=== PATIENT | male | born 1980 | race Caucasian/White ===

== ENCOUNTER 2017-03-29 11:10 | Inpatient (IN) | payer OTHER ==
[2017-03-29 11:44] VITALS: BMI 31.8
--- NOTE | 2017-03-29 13:08 | HP ---
CIWA Score - CIWA Score Nausea/Vomitin Muscle Tremors: 3 Anxiety: 3 Agitation: 3 Paroxysmal Sweats: 2 Orientation: 0-Oriented Tacttile Disturbances: 1-Very Mild Itch/Numbness Auditory Disturbances: 1-Very Mild Visual Disturbances: 1-Very Mild Sensitivity Headache: 2-Mild CIWA-Ar Total Score: 19 Admission ROS BHS - HPI Chief Complaint: i need help to stop drinking and drug Allergies/Adverse Reactions: Allergies Allergy/AdvReac Type Severity Reaction Status Date / Time No Known Allergies Allergy Verified 03/29/17 11:53 History of Present Illness: this 36 years old male with alcohol,marijuana and pcp dependence, seeking detox,never been in detox before,failed out patient treatment syncope alcohol related nicotine dependence insomnia dvt right leg and pulmonary embolism admitted in [facility] in 10/14 Exam Limitations: No Limitations - Ebola screening Have you traveled outside of the country in the last 21 days: No Have you had contact with anyone from an Ebola affected area: No Have you been sick,other than usual withdrawal symptoms: No Do you have a fever: No - Review of Systems Constitutional: Loss of Appetite, Malaise, Night Sweats, Changes in sleep, Weakness EENT: reports: Nose Congestion Respiratory: reports: No Symptoms reported Cardiac: reports: Palpitations GI: reports: Diarrhea, Nausea, Vomiting, Abdominal cramping : reports: No Symptoms Reported Musculoskeletal: reports: Back Pain, Muscle Pain Integumentary: reports: Dryness Neuro: reports: Headache, Tremors Endocrine: reports: No Symptoms Reported Hematology: reports: No Symptoms Reported Psychiatric: reports: No Sypmtoms Reported, Judgement Intact, Mood/Affect Appropiate, Orientated x3 (insomnia) Patient History - Patient Medical History Hx Anemia: No Hx Asthma: No Hx Chronic Obstructive Pulmonary Disease (COPD): No Hx Cancer: No Hx Cardiac Disorders: No Hx Congestive Heart Failure: No Hx Hypertension: No Hx Hypercholesterolemia: No Hx Pacemaker: No HX Cerebrovascular Accident: No Hx Seizures: No Hx Dementia: No Hx Diabetes: No Hx Gastrointestinal Disorders: No Hx Liver Disease: No Hx Genitourinary Disorders: No Hx Sexually Transmitted Disorders: No Hx Renal Disease (ESRD): No Hx Thyroid Disease: No Hx Human Immunodeficiency Virus (HIV): No (last negative) Hx Hepatitis C: No Hx Depression: No Hx Suicide Attempt: No Hx Bipolar Disorder: No Hx Schizophrenia: No Other Medical History: insomnia,no suicidal,no homicidal,dvt rt leg with pulmonary [id number] - Patient Surgical History Past Surgical History: No Hx Neurologic Surgery: No Hx Cataract Extraction: No Hx Cardiac Surgery: No Hx Lung Surgery: No Hx Breast Surgery: No Hx Breast Biopsy: No Hx Abdominal Surgery: No Hx Appendectomy: No Hx Cholecystectomy: No Hx Genitourinary Surgery: No Hx Section: No Hx Orthopedic Surgery: No Anesthesia Reaction: No - PPD History Previous Implant?: Yes Documented Results: Negative w/o proof Implanted On Prior [facility] Admission?: No PPD to be Administered?: Yes - Smoking Cessation Smoking history: Current every day smoker Have you smoked in the past 12 months: Yes Aproximately how many cigarettes per day: 10 Hx Chewing Tobacco Use: No Initiated information on smoking cessation: Yes 'Breaking Loose' booklet given: 03/29/17 - Substance & Tx. History Hx Alcohol Use: Yes Hx Substance Use: Yes Substance Use Type: Alcohol, Marijuana Hx Substance Use Treatment: No - Substances Abused PCP Route: Smoking Frequency: 1-2 times per week Amount used: $10 Age of first use: 22 Date of Last Use: 03/27/17 Alcohol-cognac/beer Route: Oral Frequency: Daily Amount used: 1 pt./2-6 pks. Age of first use: 16 Date of Last Use: 03/29/17 Marijuana Route: Smoking Frequency: Daily Amount used: $20 Age of first use: 15 Date of Last Use: 03/29/17 Family Disease History - Family Disease History Family History: Denies Admission Physical Exam S - Vital Signs Vital Signs: Vital Signs - 24 hr 03/29/17 11:42 Temperature 97 F L Pulse Rate 95 H Respiratory 20 Rate Blood Pressure 121/68 - Physical General Appearance: Yes: Moderate Distress, Tremorous, Irritable, Sweating, Anxious HEENTM: Yes: Hearing grossly Normal, Normal ENT Inspection, CHARY, Pharynx Normal Respiratory: Yes: Lungs Clear, Normal Breath Sounds, No Respiratory Distress, Other (history of pulmonary embolism admitted in [facility] in 10/14) Neck: Yes: Within Normal Limits, Supple, Trachea in good position Breast: Yes: Within Normal Limits Cardiology: Yes: Within Normal Limits, Regular Rhythm, Regular Rate, S1, S2 Abdominal: Yes: Within Normal Limits, Normal Bowel Sounds, Non Tender, Flat, Soft Genitourinary: Yes: Within Normal Limits Back: Yes: Normal Inspection, Muscle Spasm Musculoskeletal: Yes: Back pain, Muscle Pain Extremities: Yes: Tremors, Other (dvt right leg) 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 NML intact, Fully Oriented, Alert, Motor Strength 5/5 Integumentary: Yes: Dry Lymphatic: Yes: Within Normal Limits - Diagnostic (1) Alcohol dependence with uncomplicated withdrawal Current Visit: Yes Status: Acute (2) Cannabis dependence Current Visit: Yes Status: Acute (3) PCP (phencyclidine) abuse Current Visit: Yes Status: Acute (4) Syncope Current Visit: Yes Status: Acute (5) Nicotine dependence Current Visit: Yes Status: Acute (6) Right leg DVT Current Visit: Yes Status: Acute (7) Pulmonary embolism Current Visit: Yes Status: Acute Cleared for Admission [facility] - Detox or Rehab [facility] Level of Care: Medically Managed Detox Regimen/Protocol: Librium [facility] Breath Alcohol Content Breath Alcohol Content: 0.053 Urine Drug Screen - Results Drug Screen Negative: No Urine Drug Screen Results: THC-Marijuana, PCP-Phencyclidine
[2017-03-29] MEDS ORDERED: MENTHOL/PHENOL 1 EACH UD MM PRN (13:19)
[2017-03-29] MEDS ORDERED: MAGNESIUM HYDROX 2400MG/30ML ORAL SUSPENSION 30 ML CUP PO PRN (13:19)
[2017-03-29] MEDS ORDERED: hydrOXYzine PAMOATE 50 MG CAPSULE (FP) PO PRN (13:19)
[2017-03-29] MEDS ORDERED: diphenhydrAMINE HCL 50 MG CAPSULE PO PRN (13:19)
[2017-03-29] MEDS ORDERED: LOPERAMIDE HCL 2 MG CAPSULE PO PRN (13:19)
[2017-03-29] MEDS ORDERED: P-EPHED 60MG/TRIPROLIDI 2.5MG TABLET PO PRN (13:19)
[2017-03-29] MEDS ORDERED: ACETAMINOPHEN 325 MG TABLET (FP) PO PRN (13:19)
[2017-03-29] MEDS ORDERED: MAGNESIUM CITRATE 300 ML BOTTLE PO PRN (13:19)
[2017-03-29] MEDS ORDERED: MAG HYDROX/AL HYDROX/SIMETH 30 ML UNIT-DOSE CUP PO PRN (13:19)
[2017-03-29] MEDS ORDERED: chlordiazePOXIDE HCL 25 MG CAPSULE PO PRN (13:19)
[2017-03-29] MEDS ORDERED: guaiFENesin/D-METHORPHAN HB 10 ML UNIT-DOSE CUPS PO PRN (13:19)
[2017-03-29] MEDS ORDERED: IBUPROFEN 400 MG TABLET (FP) PO PRN (13:19)
[2017-03-29] MEDS ORDERED: chlordiazePOXIDE HCL 25 MG CAPSULE PO ONE (14:15)
[2017-03-29] MEDS: NICOTINE 21 MG/24 HOURS TOPICAL PATCH TD SCH (14:33)
--- NOTE | 2017-03-29 15:52 | CONSULT ---
[facility] Psychiatric Consult - Data Date of interview: 03/29/17 Admission source: [facility] Identifying data: First admission to [facility] for this 36 y/o male seeking detox treatment on for alcohol and marijuana dependence.Patient is single without children,homeless,unemployed and supported on foodstamps. Substance Abuse History: Discussed in this interview.Mr Alonso confirms this [facility] report : Smoking Cessation. Smoking history: Current every day smoker. Have you smoked in the past 12 months: Yes. Aproximately how many cigarettes per day: 10. Hx Chewing Tobacco Use: No. Initiated information on smoking cessation: Yes. 'Breaking Loose' booklet given: 03/29/17. - Substance & Tx. History. Hx Alcohol Use: Yes. Hx Substance Use: Yes. Substance Use Type: Alcohol, Marijuana. Hx Substance Use Treatment: No. - Substances Abused. PCP. Route: Smoking. Frequency: 1-2 times per week. Amount used: $10. Age of first use: 22. Date of Last Use: 03/27/17. Alcohol-cognac/beer. Route: Oral. Frequency: Daily. Amount used: 1 pt./2-6 pks. Age of first use: 16. Date of Last Use: 03/29/17. Marijuana. Route: Smoking. Frequency: Daily. Amount used: $20. Age of first use: 15. Date of Last Use: 03/29/17 Medical History: Significant for DVT (right leg) and a history of pulmonary embolism. Psychiatric History: Patient denies. Physical/Sexual Abuse/Trauma History: Patient denies. Additional Comment: Urine Drug Screen Results: THC-Marijuana, PCP- Phencyclidine.Noted. Mental Status Exam - Mental Status Exam Alert and Oriented to: Time, Place, Person Cognitive Function: Good Patient Appearance: Well Groomed Mood: Hopeful, Euthymic Affect: Appropriate, Normal Range Patient Behavior: Appropriate, Cooperative Speech Pattern: Clear Voice Loudness: Normal Thought Process: Goal Oriented Thought Disorder: Not Present Hallucinations: Denies Suicidal Ideation: Denies Homicidal Ideation: Denies Insight/Judgement: Poor Sleep: Poorly, Difficulty falling asleep Appetite: Good Muscle strength/Tone: Normal Gait/Station: Normal Psychiatric Findings - Problem List ([place] 1, 2,3) (1) Alcohol dependence with uncomplicated withdrawal Current Visit: Yes Status: Acute (2) PCP (phencyclidine) abuse Current Visit: Yes Status: Acute (3) Cannabis dependence Current Visit: Yes Status: Acute (4) Nicotine dependence Current Visit: Yes Status: Acute (5) Pulmonary embolism Current Visit: No Status: Chronic (6) Right leg DVT Current Visit: Yes Status: Acute (7) Insomnia Current Visit: Yes Status: Acute - Initial Treatment Plan Initial Treatment Plan: Psychoeducation.Detoxification.Ambien 10 mg po prn.Patient made aware of potential for parasomnias.Benefits of sleep hygiene : discussed with patient as well.Mr Alonso is in agreement with this careplan.Observation.
[2017-03-29] MEDS ORDERED: ZOLPIDEM TARTRATE 5 MG TABLET PO PRN (16:09)
[2017-03-29 17:07] LABS: URINE APPEARANCE CLEAR; URINE BILIRUBIN NEGATIVE (NEGATIVE); URINE BLOOD NEGATIVE (NEGATIVE); URINE COLOR YELLOW; URINE GLUCOSE (UA) NEGATIVE (NEGATIVE); URINE KETONE NEGATIVE (NEGATIVE); URINE LEUK ESTERASE NEGATIVE (NEGATIVE); URINE NITRITE NEGATIVE (NEGATIVE); URINE PROTEIN NEGATIVE (NEGATIVE); URINE UROBILINOGEN NEGATIVE mg/dL (0.2-1.0)
[2017-03-29] MEDS: chlordiazePOXIDE HCL 25 MG CAPSULE PO SCH ×2 (17:20→22:24)
[2017-03-29] MEDS ORDERED: THIAMINE HCL 100 MG TABLET (FP) PO SCH (22:00)
[2017-03-29] MEDS: RIVAROXABAN 15 MG TABLET PO SCH (22:23)
[2017-03-30] MEDS: chlordiazePOXIDE HCL 25 MG CAPSULE PO SCH ×2 (06:28→10:35)
[2017-03-30] MEDS ORDERED: PRENATAL VITAMINS W/ FOLIC ACID TABLET (FP) PO SCH (10:00)
[2017-03-30 10:08] LABS: MCH 31.4 pg (25.7-33.7); MCHC 34.4 g/dl (32.0-35.9); MEAN CELL VOLUME 91.4 fl (80-96); MEAN PLT VOLUME 8.6 fl (7.5-11.1); PLATELET COUNT 240 K/MM3 (134-434); RDW 13.3 % (11.9-15.9); WHITE BLOOD COUNT 5.6 K/mm3 (4.0-10.0)
[2017-03-30 10:31] LABS: ALBUMIN 4.1 g/dl (3.4-5.0); ALK PHOS 78 U/L (45-117); ANION GAP 5 (8-16); BILIRUBIN,TOTAL 0.6 mg/dL (0.2-1.0); CALCIUM 9.2 mg/dL (8.5-10.1); CO2 28 mmol/L (21-32); GLUCOSE,RANDOM 97 mg/dL (74-106); SGOT/AST 15 U/L (15-37); SGPT/ALT 28 U/L (12-78); TOT PROT 7.5 g/dl (6.4-8.2)
[2017-03-30] MEDS: RIVAROXABAN 15 MG TABLET PO SCH (10:36)
[2017-03-30] MEDS: NICOTINE 21 MG/24 HOURS TOPICAL PATCH TD SCH (10:36)
--- NOTE | 2017-03-30 10:47 | PN ---
[facility] CIWA - CIWA Score Nausea/Vomitin-No Nausea/No Vomiting Muscle Tremors: 4-Moderate,w/Arms Extend Anxiety: 4-Mod. Anxious/Guarded Agitation: 4-Moderately Restless Paroxysmal Sweats: 1-Minimal Palms Moist Orientation: 0-Oriented Tacttile Disturbances: 3-Moderate Itch/Numb/Burn Auditory Disturbances: 0-None Visual Disturbances: 0-None Headache: 0-None Present CIWA-Ar Total Score: 16 BHS Progress Note (SOAP) Subjective: TREMORS,ANXIETY, SWEATS. Objective: 03/30/17 10:46 Vital Signs Temperature 97.1 F L 03/30/17 09:17 Pulse Rate 82 03/30/17 09:17 Respiratory Rate 18 03/30/17 09:17 Blood Pressure 118/84 03/30/17 09:17 O2 Sat by Pulse Oximetry (%) Laboratory Last Values WBC 5.6 K/mm3 (4.0-10.0) 03/30/17 06:00 RBC 4.82 M/mm3 (4.00-5.60) 03/30/17 06:00 Hgb 15.1 GM/dL (11.7-16.9) 03/30/17 06:00 Hct 44.1 % (35.4-49) 03/30/17 06:00 MCV 91.4 fl (80-96) 03/30/17 06:00 MCH 31.4 pg (25.7-33.7) 03/30/17 06:00 MCHC 34.4 g/dl (32.0-35.9) 03/30/17 06:00 RDW 13.3 % (11.9-15.9) 03/30/17 06:00 Plt Count 240 K/MM3 (134-434) 03/30/17 06:00 MPV 8.6 fl (7.5-11.1) 03/30/17 06:00 Sodium 141 mmol/L (136-145) 03/30/17 06:00 Potassium 4.3 mmol/L (3.5-5.1) 03/30/17 06:00 Chloride 108 mmol/L (98-107) H 03/30/17 06:00 Carbon Dioxide 28 mmol/L (21-32) 03/30/17 06:00 Anion Gap 5 (8-16) L 03/30/17 06:00 BUN 15 mg/dL (7-18) 03/30/17 06:00 Creatinine 1.0 mg/dL (0.7-1.3) 03/30/17 06:00 Creat Clearance w eGFR > 60 (>60) 03/30/17 06:00 Random Glucose 97 mg/dL (74-106) 03/30/17 06:00 Calcium 9.2 mg/dL (8.5-10.1) 03/30/17 06:00 Total Bilirubin 0.6 mg/dL (0.2-1.0) 03/30/17 06:00 AST 15 U/L (15-37) 03/30/17 06:00 ALT 28 U/L (12-78) 03/30/17 06:00 Alkaline Phosphatase 78 U/L (45-117) 03/30/17 06:00 Total Protein 7.5 g/dl (6.4-8.2) 03/30/17 06:00 Albumin 4.1 g/dl (3.4-5.0) 03/30/17 06:00 Urine Color Yellow 03/29/17 14:55 Urine Appearance Clear 03/29/17 14:55 Urine pH 5.0 (5.0-8.0) 03/29/17 14:55 Ur Specific [place] 1.025 (1.005-1.025) 03/29/17 14:55 Urine Protein Negative (NEGATIVE) 03/29/17 14:55 Urine Glucose (UA) Negative (NEGATIVE) 03/29/17 14:55 Urine Ketones Negative (NEGATIVE) 03/29/17 14:55 Urine Blood Negative (NEGATIVE) 03/29/17 14:55 Urine Nitrite Negative (NEGATIVE) 03/29/17 14:55 Urine Bilirubin Negative (NEGATIVE) 03/29/17 14:55 Urine Urobilinogen Negative mg/dL (0.2-1.0) 03/29/17 14:55 Ur Leukocyte Esterase Negative (NEGATIVE) 03/29/17 14:55 Assessment: 03/30/17 10:46 WITHDRAWAL SX Plan: CONTINUE DETOX
--- NOTE | 2017-03-30 11:31 | EKG ---
Test Reason : Blood Pressure : / mmHG Vent. Rate : 072 BPM Atrial Rate : 072 BPM P-R Int : 168 ms QRS Dur : 088 ms QT Int : 374 ms P-R-T Axes : 072 -01 019 degrees QTc Int : 409 ms NORMAL SINUS RHYTHM NORMAL ECG NO PREVIOUS ECGS AVAILABLE Confirmed by JORGE HILTNO, TERESA ([id number]) on 03/30/2017 11:30:48 AM Referred By: Suhail Boland Confirmed By:TERESA PATEL MD
[2017-03-30 13:46] VITALS: BP 110/78; PULSE 78; TEMP 97.4
--- NOTE | 2017-03-30 14:50 | DS ---
[facility] Detox Discharge Summary Admission Date: 03/29/17 Discharge Date: 03/30/17 - History Present History: Alcohol Dependence, Cannabis Dependence Additional Comments: PT DECLINED TO CONTINUE WITH DETOX FOR PERSONAL REASONS STATING "I'M GOOD". PT STATES HAS PCP AT [facility]. PT REMINDED TO FOLLOW UP WITH MEDICAL CARE NEEDED WITH PCP. ALL EFFORTS TO ENCOURAGE PT TO CONTINUE DETOX FAILED. Pertinent Past History: DENIES - Physical Exam Results Vital Signs: Vital Signs Temperature 97.4 F L 03/30/17 13:45 Pulse Rate 78 03/30/17 13:45 Respiratory Rate 18 03/30/17 13:45 Blood Pressure 110/78 03/30/17 13:45 O2 Sat by Pulse Oximetry (%) Pertinent Admission Physical Exam Findings: WITHDRAWAL SX Laboratory Last Values WBC 5.6 K/mm3 (4.0-10.0) 03/30/17 06:00 RBC 4.82 M/mm3 (4.00-5.60) 03/30/17 06:00 Hgb 15.1 GM/dL (11.7-16.9) 03/30/17 06:00 Hct 44.1 % (35.4-49) 03/30/17 06:00 MCV 91.4 fl (80-96) 03/30/17 06:00 MCH 31.4 pg (25.7-33.7) 03/30/17 06:00 MCHC 34.4 g/dl (32.0-35.9) 03/30/17 06:00 RDW 13.3 % (11.9-15.9) 03/30/17 06:00 Plt Count 240 K/MM3 (134-434) 03/30/17 06:00 MPV 8.6 fl (7.5-11.1) 03/30/17 06:00 Sodium 141 mmol/L (136-145) 03/30/17 06:00 Potassium 4.3 mmol/L (3.5-5.1) 03/30/17 06:00 Chloride 108 mmol/L (98-107) H 03/30/17 06:00 Carbon Dioxide 28 mmol/L (21-32) 03/30/17 06:00 Anion Gap 5 (8-16) L 03/30/17 06:00 BUN 15 mg/dL (7-18) 03/30/17 06:00 Creatinine 1.0 mg/dL (0.7-1.3) 03/30/17 06:00 Creat Clearance w eGFR > 60 (>60) 03/30/17 06:00 Random Glucose 97 mg/dL (74-106) 03/30/17 06:00 Calcium 9.2 mg/dL (8.5-10.1) 03/30/17 06:00 Total Bilirubin 0.6 mg/dL (0.2-1.0) 03/30/17 06:00 AST 15 U/L (15-37) 03/30/17 06:00 ALT 28 U/L (12-78) 03/30/17 06:00 Alkaline Phosphatase 78 U/L (45-117) 03/30/17 06:00 Total Protein 7.5 g/dl (6.4-8.2) 03/30/17 06:00 Albumin 4.1 g/dl (3.4-5.0) 03/30/17 06:00 Urine Color Yellow 03/29/17 14:55 Urine Appearance Clear 03/29/17 14:55 Urine pH 5.0 (5.0-8.0) 03/29/17 14:55 Ur Specific [place] 1.025 (1.005-1.025) 03/29/17 14:55 Urine Protein Negative (NEGATIVE) 03/29/17 14:55 Urine Glucose (UA) Negative (NEGATIVE) 03/29/17 14:55 Urine Ketones Negative (NEGATIVE) 03/29/17 14:55 Urine Blood Negative (NEGATIVE) 03/29/17 14:55 Urine Nitrite Negative (NEGATIVE) 03/29/17 14:55 Urine Bilirubin Negative (NEGATIVE) 03/29/17 14:55 Urine Urobilinogen Negative mg/dL (0.2-1.0) 03/29/17 14:55 Ur Leukocyte Esterase Negative (NEGATIVE) 03/29/17 14:55 - Treatment Hospital Course: Discharged Condition Good Patient has Accepted a Rehab Referral to: PT STATES IS GOING TO [facility] - Medication Discharge Medications: Ambulatory Orders Rivaroxaban [Xarelto -] 15 mg PO BID 03/29/17 - Diagnosis (1) Alcohol dependence with uncomplicated withdrawal Current Visit: Yes Status: Acute (2) Cannabis dependence Current Visit: Yes Status: Acute (3) Nicotine dependence Current Visit: Yes Status: Acute Qualifiers: Nicotine product type: cigarettes Substance use status: in withdrawal Qualified Code(s): F17.213 - Nicotine dependence, cigarettes, with withdrawal (4) Right leg DVT Current Visit: Yes Status: Suspected Qualifiers: Affected thrombotic vein of extremity: unspecified lower extremity proximal vein Chronicity: unspecified Qualified Code(s): I82.4Y1 - Acute embolism and thrombosis of unspecified deep veins of right proximal lower extremity (5) Pulmonary embolism Current Visit: No Status: Suspected - AMA Did Patient Leave Against Medical Advice: Yes (AMA)
[2017-03-30] MEDS ORDERED: chlordiazePOXIDE HCL 25 MG CAPSULE PO SCH (17:00)
[2017-03-31] MEDS ORDERED: chlordiazePOXIDE 5 MG CAPSULE PO SCH (17:00)
[2017-04-01] MEDS ORDERED: chlordiazePOXIDE HCL 10 MG CAPSULE PO SCH (17:00)
== END 2017-03-30 15:06 | disposition left against medical advice (07) | DRG 770 ==
LOC: YASAS 11:10 → Y3N 13:28
PROVIDERS: ADMIT Internal Medicine; ATTEND Internal Medicine
PROC: HZ2ZZZZ Detoxification Services for Substance Abuse Treatment (ICD-10-PCS; principal; 2017-03-29)
DX: F10.230 Alcohol dependence with withdrawal, uncomplicated (principal); F12.20 Cannabis dependence, uncomplicated; F16.10 Hallucinogen abuse, uncomplicated; F17.213 Nicotine dependence, cigarettes, with withdrawal; I82.4Y1 Acute embolism and thrombosis of unspecified deep veins of right proximal lower extremity; Z86.711 Personal history of pulmonary embolism; Z79.01 Long term (current) use of anticoagulants
CPT/HCPCS: 36415; 80053; 81003; 85027; 86593; 93005; 93010

== ENCOUNTER 2019-08-08 14:27 | Emergency (ER) | payer OTHER ==
[2019-08-08 14:41] VITALS: BP 136/85; PULSE 83; TEMP 98; BMI 29.9
[2019-08-08] MEDS ORDERED: LIDOCAINE HCL 1%, 10 MG/ML (20ML VIAL) ONE (15:14)
[2019-08-08] MEDS ORDERED: AMOX TR/POT CLAV 875MG/125MG TABLETS (FP) PO ONE (15:37)
[2019-08-08] MEDS ORDERED: DIPHTH,PERTUSS(ACELL),TET 0.5 ML DISP.SYRIN IM ONE ×2 (15:37→15:51)
[2019-08-08] MEDS ORDERED: AMOX TR/POT CLAV 875MG/125MG TABLETS (FP) ONE (15:50)
--- NOTE | 2019-08-08 15:51 | PDOC ---
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 Patient had profuse bleeding/pulsatile bleeding at the time and came immediately to emergency department for evaluation. Uncertain as to last tetanus shot. States has some numbness to the distal aspect of that finger. Occurred: reports: just prior to arrival Severity: reports: mild, moderate Pain Location: reports: upper extremity (Left finger fifth) Method of Injury: Yes: direct blow Associated Symptoms (Fall): denies symptoms Past History - Travel Traveled outside of the country in the last 30 days: No Close contact w/someone who was outside of country & ill: No - Past Medical History Allergies/Adverse Reactions: Allergies Allergy/AdvReac Type Severity Reaction Status Date / Time No Known Allergies Allergy Verified 03/29/17 11:53 Home Medications: Ambulatory Orders Amox-Tr/K Cl [Augmentin 875Mg Tablet] 1 tab PO BID #14 tablet 08/08/19 Oxycodone HCl/Acetaminophen [Percocet 5-325 mg Tablet -] 1 - 2 tab PO Q4H PRN # 10 tablet MDD 4 08/08/19 Anemia: No Asthma: No Cancer: No Cardiac Disorders: No CVA: No COPD: No CHF: No Dementia: No Diabetes: No GI Disorders: No Disorders: No HTN: No Hypercholesterolemia: No Kidney Stones: No Liver Disease: No Seizures: No Thyroid Disease: No Other medical history: PE - Surgical History Abdominal Surgery: No Appendectomy: No Cardiac Surgery: No Cholecystectomy: No Lung Surgery: No Neurologic Surgery: No Orthopedic Surgery: No - Reproductive History Testicular Surgery: No - Psycho Social/Smoking Cessation Hx Smoking History: Current every day smoker Have you smoked in the past 12 months: Yes Number of Cigarettes Smoked Daily: 2 Information on smoking cessation initiated: No 'Breaking Loose' booklet given: 03/29/17 Hx Alcohol Use: Yes Drug/Substance Use Hx: Yes Substance Use Type: Alcohol, Marijuana Hx Substance Use Treatment: No Trauma Specific PMHX - Complaint Specific PMHX Arthritis: No Review of Systems - Review of Systems Able to Perform ROS?: Yes Is the patient limited [place]at[place] proficient: Yes Constitutional: Yes: Symptoms Reported, See HPI. No: Fever, Malaise HEENTM: No: Symptoms Reported Musculoskeletal: Yes: Symptoms Reported, See HPI Integumentary: Yes: Symptoms Reported, See HPI, Other (Significant laceration to the flexor crease of left fifth PIP) Neurological: Yes: Symptoms reported, See HPI, Numbness All Other Systems: Reviewed and Negative *Physical Exam - Vital Signs Last Vital Signs Temp Pulse Resp BP Pulse Ox 98 F 83 18 136/85 99 08/08/19 14:39 08/08/19 14:39 08/08/19 14:39 08/08/19 14:39 08/08/19 14:39 - Physical Exam General Appearance: Yes: Nourished, Appropriately Dressed, Apparent Distress, Moderate Distress HEENT: positive: CHARY, Normal ENT Inspection, TMs Normal, Pharynx Normal Musculoskeletal: positive: Normal Inspection Extremity: positive: Normal Capillary Refill, Swelling. negative: Normal Inspection, Normal Range of Motion (Patient unable to flex left fifth digit past PIP and sensation is diminished in distal digit tip. Has a full-thickness laceration) Integumentary: positive: Pale, Other (2 cm laceration across PIP of left fifth digit with pulsatile bleeding. 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 Discussed case with Dr. Carcamo/JODY Lyman for their service who recommends closure splinting and will see patient in their office for surgical repair this coming week. Patient updated to plan, given first dose of Augmentin 875 mg here, tetanus/diphtheria/ pertussis booster updated 08/08/19 19:45 Discharge - Discharge Information Problems reviewed: Yes Clinical Impression/Diagnosis: Flexor tendon laceration of hand with open wound Qualifiers: Encounter type: initial encounter Laterality: left Qualified Code(s): S66.822A - Laceration of other specified muscles, fascia and tendons at wrist and hand level, left hand, initial encounter Condition: Stable Disposition: HOME - Admission No - Additional Discharge Information Prescriptions: Amox-Tr/K Cl [Augmentin 875Mg Tablet] 1 tab PO BID #14 tablet Oxycodone HCl/Acetaminophen [Percocet 5-325 mg Tablet -] 1 - 2 tab PO Q4H PRN # 10 tablet MDD 4 PRN Reason: Pain - Follow up/Referral Referrals: Rex Cortez MD [Staff Physician] - - Patient Discharge Instructions Patient Printed Discharge Instructions: DI for Laceration Repair Additional Instructions: Rest, elevate, avoid strenuous activity or heavy lifting until evaluated by hand specialist Use sling until seen by Dr. Bradley Call tomorrow for appointment to see hand specialist within the next week Augmentin 1-875 mg tablet every 12 hours for the next week May use Percocet for severe pain, understanding will make dizzy and sleepy. May use one half tab if 1 tablet is too strong May use Tylenol for minor pain Your tetanus/diphtheria/pertussis booster was updated today - Post Discharge Activity Work/Back to School Note: Back to Work
== END 2019-08-08 16:19 | disposition home or self-care (01) ==
LOC: JERFT 14:27
PROC: 3E0234Z Introduction of Serum, Toxoid and Vaccine into Muscle, Percutaneous Approach (ICD-10-PCS; principal; 2019-08-08)
DX: S66.822A Laceration of other specified muscles, fascia and tendons at wrist and hand level, left hand, initial encounter (principal); W45.8XXA Other foreign body or object entering through skin, initial encounter; Y93.89 Activity, other specified; Y92.89 Other specified places as the place of occurrence of the external cause; Y99.0 Civilian activity done for income or pay; F17.210 Nicotine dependence, cigarettes, uncomplicated; Z86.711 Personal history of pulmonary embolism
CPT/HCPCS: 73140-TC-LT-FY; 90715; 99284-25

== ENCOUNTER 2020-04-30 10:38 | Inpatient (IN) | payer OTHER ==
--- NOTE | 2020-04-30 11:37 | BHS.RME ---
Substance Use & Tx History - Substance Use History Alcohol Substance amount: 2 pints lisa Frequency of use: Daily Substance route: Oral Date of Last Use: 04/28/20 Marijuana/Hashish Substance amount: 5 blunts Frequency of use: Daily Substance route: Smoking Date of Last Use: 04/30/20 Buprenorphine Substance amount: 6-7 mg Frequency of use: Daily Substance route: Oral Date of Last Use: 04/29/20 Other Opiates/Synthetics Substance amount: percocets 10-325 tab 5-6 tabs Frequency of use: Daily Substance route: Oral Date of Last Use: 04/27/20 COWS - Scale Resting Pulse: 1= [place] 81-100 Sweatin= Chills/Flushing Restless Observation: 1= Difficult to Sit Still Pupil Size: 0= Normal to Room Light Bone or Joint Aches: 1= Mild Discomfort Runny Nose/ Eye Tearin= None GI Upset > 30mins: 0= None Tremor Observation: 0= None Yawning Observation: 0= None Anxiety or Irritability: 0= None Goose Flesh Skin: 0=Smooth Skin (may be mititgated by the fact that he's been taking suboxone strips pieces) COWS Score: 4 CIWA Nausea/Vomitin-Mild Nausea/No Vomiting Muscle Tremors: 3 Anxiety: 4-Mod. Anxious/Guarded Agitation: 3 Paroxysmal Sweats: 3 Orientation: 0-Oriented Tacttile Disturbances: 0-None Auditory Disturbances: 0-None Visual Disturbances: 0-None Headache: 1-Very Mild CIWA-Ar Total Score: 15
--- NOTE | 2020-04-30 12:20 | HP ---
COWS - Scale Resting Pulse: 1= MI 81-100 Sweatin= Chills/Flushing Restless Observation: 1= Difficult to Sit Still Pupil Size: 0= Normal to Room Light Bone or Joint Aches: 1= Mild Discomfort Runny Nose/ Eye Tearin= None GI Upset > 30mins: 0= None Tremor Observation: 0= None Yawning Observation: 0= None Anxiety or Irritability: 0= None Goose Flesh Skin: 0=Smooth Skin (may be mititgated by the fact that he's been taking suboxone strips pieces) COWS Score: 4 CIWA Score Nausea/Vomitin-Mild Nausea/No Vomiting Muscle Tremors: 3 Anxiety: 4-Mod. Anxious/Guarded Agitation: 3 Paroxysmal Sweats: 3 Orientation: 0-Oriented Tacttile Disturbances: 0-None Auditory Disturbances: 0-None Visual Disturbances: 0-None Headache: 1-Very Mild CIWA-Ar Total Score: 15 - Admission Criteria [facility]ASAS Guidelines: Admission for Medically Managed Detox: Requires at least one of the followin. CIWA greater than 12 2. Seizures within the past 24 hours 3. Delirium tremens within the past 24 hours 4. Hallucinations within the past 24 hours 5. Acute intervention needed for co occurring medical disorder 6. Acute intervention needed for co occurring psychiatric disorder 7. Severe withdrawal that cannot be handled at a lower level of care (continued vomiting, continued diarrhea, abnormal vital signs) requiring intravenous medication and/or fluids 8. Admitting History and Physical - Admission History of Present Illness: Patient is a 39 y.o. M PMHx DVT presenting to [facility] for detox. Patient was examined in the room and is in no acute distress. 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 - Substance Use History Alcohol Substance amount: 2 pints lisa Frequency of use: Daily Substance route: Oral Date of Last Use: 04/28/20 Marijuana/Hashish Substance amount: 5 blunts Frequency of use: Daily Substance route: Smoking Date of Last Use: 04/30/20 Buprenorphine Substance amount: 6-7 mg Frequency of use: Daily Substance route: Oral Date of Last Use: 04/29/20 Other Opiates/Synthetics Substance amount: percocets 10-325 tab 5-6 tabs Frequency of use: Daily Substance route: Oral Date of Last Use: 04/27/20 History Source: Patient Limitations to Obtaining History: No Limitations - Past Medical History [employer]MER: No: Seizure Cardiovascular: No: HTN, Hyperlipdemia Pulmonary: Yes: Pulmonary Embolus Gastrointestinal: No: GERD, GI Bleed Hepatobiliary: No: Hepatitis A, Hepatitis B, Hepatitis C Infectious Disease: No: HIV, STD's, Tuberculosis Psych: No: Anxiety, Depression - Past Surgical History Past Surgical History: Yes: None - Smoking History Smoking history: Current every day smoker Have you smoked in the past 12 months: Yes Aproximately how many cigarettes per day: 10 - Alcohol/Substance Use Hx Alcohol Use: Yes Number of Drinks Daily: 2 History of Substance Use: reports: Marijuana - Social History Usual Living Arrangement: Yes: Other (friend) ADL: Independent 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 M PMHx DVT presenting to [facility] for detox. Patient was examined in the room and is in no acute distress. 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 - Substance Use History Alcohol Substance amount: 2 pints ilsa Frequency of use: Daily Substance route: Oral Date of Last Use: 04/28/20 Marijuana/Hashish Substance amount: 5 blunts Frequency of use: Daily Substance route: Smoking Date of Last Use: 04/30/20 Buprenorphine Substance amount: 6-7 mg Frequency of use: Daily Substance route: Oral Date of Last Use: 04/29/20 Other Opiates/Synthetics Substance amount: percocets 10-325 tab 5-6 tabs Frequency of use: Daily Substance route: Oral Date of Last Use: 04/27/20 Exam Limitations: No Limitations - Ebola screening Have you traveled outside of the country in the last 21 days: No Have you had contact with anyone from an Ebola affected area: No Have you been sick,other than usual withdrawal symptoms: No Do you have a fever: No - Review of Systems Constitutional: No Symptoms Reported EENT: reports: Double Vision. denies: Blurred Vision Respiratory: denies: Cough, Shortness of Breath Cardiac: reports: Lightheadedness. denies: Chest Pain GI: denies: Constipated, Diarrhea, Nausea, Vomiting : reports: Other (hesitancy). denies: Burning, Dysuria Musculoskeletal: denies: Muscle Pain, Muscle Weakness, Neck Pain Neuro: reports: Dizziness. denies: Headache, Numbness, Paresthesia Psychiatric: reports: No Sypmtoms Reported, Judgement Intact, Mood/Affect Appropiate, Orientated x3 Patient History - Patient Medical History Hx Anemia: No Hx Asthma: No Hx Chronic Obstructive Pulmonary Disease (COPD): No Hx Cancer: No Hx Cardiac Disorders: No Hx Congestive Heart Failure: No Hx Hypertension: No Hx Hypercholesterolemia: No Hx Pacemaker: No HX Cerebrovascular Accident: No Hx Seizures: No Hx Dementia: No Hx Diabetes: No Hx Gastrointestinal Disorders: No Hx Liver Disease: No Hx Genitourinary Disorders: No Hx Sexually Transmitted Disorders: No Hx Renal Disease (ESRD): No Hx Thyroid Disease: No Hx Human Immunodeficiency Virus (HIV): No (last negative) Hx Hepatitis C: No Hx Depression: No Hx Suicide Attempt: No Hx Bipolar Disorder: No Hx Schizophrenia: No - Patient Surgical History Past Surgical History: No Hx Neurologic Surgery: No Hx Cataract Extraction: No Hx Cardiac Surgery: No Hx Lung Surgery: No Hx Breast Surgery: No Hx Breast Biopsy: No Hx Abdominal Surgery: No Hx Appendectomy: No Hx Cholecystectomy: No Hx Genitourinary Surgery: No Hx Section: No Hx Orthopedic Surgery: No Anesthesia Reaction: No - PPD History Date: 01/29/20 - Smoking Cessation Smoking history: Current every day smoker Have you smoked in the past 12 months: Yes Aproximately how many cigarettes per day: 10 Hx Chewing Tobacco Use: No Initiated information on smoking cessation: Yes 'Breaking Loose' booklet given: 04/30/20 Admission Physical Exam [facility] - Physical General Appearance: Yes: Within Normal Limits, No Apparent Distress, Nourished, Appropriately Dressed Respiratory: Yes: Within Normal Limits, Lungs Clear, Decreased Breath Sounds, No Respiratory Distress, No Accessory Muscle Use Cardiology: Yes: Within Normal Limits, Regular Rhythm, Regular Rate Abdominal: Yes: Within Normal Limits, Normal Bowel Sounds, Non Tender, Flat, Soft Back: Yes: Within Normal Limits, Normal Inspection. No: CVA Tenderness Musculoskeletal: Yes: Within Normal Limits, full range of Motion Extremities: Yes: Normal Capillary Refill, Normal Inspection, Normal Range of Motion, Non-Tender Neurological: Yes: Within Normal Limits, Fully Oriented, Alert, Normal Mood/Aff ect, Normal Response Integumentary: Yes: Within Normal Limits, Normal Color, Dry, Warm - Diagnostic (1) Alcohol dependence with uncomplicated withdrawal Current Visit: No Status: Chronic (2) Cannabis dependence Current Visit: No Status: Chronic (3) Nicotine dependence Current Visit: No Status: Chronic Qualifiers: Nicotine product type: cigarettes Substance use status: in withdrawal Qualified Code(s): F17.213 - Nicotine dependence, cigarettes, with withdrawal (4) Opioid use disorder Current Visit: No Status: Chronic (5) Pulmonary embolism Current Visit: No Status: Suspected (6) Right leg DVT Current Visit: No Status: Suspected Qualifiers: Affected thrombotic vein of extremity: unspecified lower extremity proximal vein Chronicity: unspecified Qualified Code(s): I82.4Y1 - Acute embolism and thrombosis of unspecified deep veins of right proximal lower extremity Cleared for Admission [facility] - Detox or Rehab [facility] Level of Care: Medically Managed Detox Regimen/Protocol: Librium Breathalyzer - Breathalyzer Breathalyzer: 0 Vital Signs - Vital Signs Vital signs refused: No Temperature: 97.2 F Pulse Rate: 106 Respiratory Rate: 12 Blood Pressure: 130/78 - Height Height: 1.8 m - Weight Weight: 105.233 kg - BMI Body Mass Index (BMI): 32.3 Urine Drug Screen - Test Device Lot number: [id number] Expiration date: 12/03/21 - Control Is test valid?: Yes - Results Drug screen NEGATIVE: No Urine drug screen results: THC-Marijuana, BZO-Benzodiazepines Inpatient Rehab Admission - Rehab Decision to Admit Inpatient rehab admission?: No
[2020-04-30 12:26] VITALS: BMI 32.3
[2020-04-30] MEDS ORDERED: IBUPROFEN 400 MG TABLET (FP) PO PRN (12:26)
[2020-04-30] MEDS ORDERED: MENTHOL/PHENOL 1 EACH UD MM PRN (12:26)
[2020-04-30] MEDS ORDERED: METHOCARBAMOL 500 MG TABLET PO PRN (12:26)
[2020-04-30] MEDS ORDERED: chlordiazePOXIDE HCL 25 MG CAPSULE PO PRN (12:26)
[2020-04-30] MEDS ORDERED: MAGNESIUM CITRATE 300 ML BOTTLE PO PRN (12:26)
[2020-04-30] MEDS ORDERED: MAGNESIUM HYDROX 2400MG/30ML ORAL SUSPENSION 30 ML CUP PO PRN (12:26)
[2020-04-30] MEDS ORDERED: MAG HYDROX/AL HYDROX/SIMETH 30 ML UNIT-DOSE CUP PO PRN (12:26)
[2020-04-30] MEDS ORDERED: BISMUTH SUBSALICYLATE 524 MG/30 ML UD PO PRN (12:26)
[2020-04-30] MEDS ORDERED: ACETAMINOPHEN 325 MG TABLET (FP) PO PRN ×2 (12:26)
[2020-04-30] MEDS ORDERED: NICOTINE POLACRILEX 2 MG GUM BUC PRN (12:26)
[2020-04-30] MEDS ORDERED: ONDANSETRON *ODT* 4 MG TABLET SL ONE (13:00)
[2020-04-30] MEDS ORDERED: hydrOXYzine PAMOATE 25 MG CAPSULE (FP) PO SCH (14:00)
--- NOTE | 2020-04-30 15:03 | PN ---
Teaching Attending Note Name of Resident: Nilton Saunders ATTENDING PHYSICIAN STATEMENT I saw and evaluated the patient. I reviewed the resident's note and discussed the case with the resident. I agree with the resident's findings and plan as documented. SUBJECTIVE: OBJECTIVE: ASSESSMENT AND PLAN: Patient is a 39 y.o. M PMHx DVT presenting to [facility] for detox. Patient was examined in the room and is in no acute distress. 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 UDS: THC, BZO 1. Alcohol use disorder Plan 1. Librium protocol
--- NOTE | 2020-04-30 15:30 | EKG ---
Test Reason : Blood Pressure : / mmHG Vent. Rate : 083 BPM Atrial Rate : 083 BPM P-R Int : 166 ms QRS Dur : 090 ms QT Int : 360 ms P-R-T Axes : 085 008 050 degrees QTc Int : 423 ms NORMAL SINUS RHYTHM NORMAL ECG WHEN COMPARED WITH ECG OF 29-MAR-2017 13:39, NO SIGNIFICANT CHANGE WAS FOUND Confirmed by TERESA PATEL MD ([id number]) on 04/30/2020 3:29:37 PM Referred By: Confirmed By:TERESA PATEL MD
[2020-04-30] MEDS ORDERED: hydrOXYzine PAMOATE 25 MG CAPSULE (FP) PO PRN (15:34)
[2020-04-30 17:02] LABS: HEMATOCRIT 39.4 % (35.4-49); HEMOGLOBIN 13.6 GM/dL (11.7-16.9); MCH 31.7 pg (25.7-33.7); MCHC 34.5 g/dl (32.0-35.9); MEAN CELL VOLUME 91.9 fl (80-96); PLATELET COUNT 265 K/MM3 (134-434); RBC 4.29 M/mm3 (4.00-5.60); RDW 12.7 % (11.9-15.9); WHITE BLOOD COUNT 7.3 K/mm3 (4.0-10.0)
[2020-04-30 17:40] LABS: BILIRUBIN,TOTAL 0.3 mg/dL (0.2-1); BLOOD UREA NITROGEN 22.9 mg/dL (7-18); CALCIUM 9.2 mg/dL (8.5-10.1); CREATININE 1.2 mg/dL (0.55-1.3); POTASSIUM 4.5 mmol/L (3.5-5.1); TOT PROT 7.4 g/dl (6.4-8.2)
[2020-04-30] MEDS: chlordiazePOXIDE HCL 25 MG CAPSULE PO SCH ×2 (18:25→23:03)
[2020-04-30] MEDS ORDERED: THIAMINE HCL 100 MG TABLET (FP) PO SCH (22:00)
[2020-04-30] MEDS: MELATONIN 5 MG TABLETS PO SCH ×2 (23:20→23:33)
[2020-05-01 06:30] VITALS: TEMP 97.8
[2020-05-01] MEDS: chlordiazePOXIDE HCL 25 MG CAPSULE PO SCH ×2 (07:39→12:00)
[2020-05-01] MEDS ORDERED: PRENATAL VITAMINS W/ FOLIC ACID TABLET (FP) PO SCH (10:00)
[2020-05-01] MEDS ORDERED: NICOTINE 7 MG/24 HOURS TOPICAL PATCH TD SCH (10:00)
--- NOTE | 2020-05-01 10:23 | PN ---
S CIWA - CIWA Score Nausea/Vomitin-No Nausea/No Vomiting Muscle Tremors: 3 Anxiety: 3 Agitation: 3 Paroxysmal Sweats: 3 Orientation: 0-Oriented Tacttile Disturbances: 0-None Auditory Disturbances: 0-None Visual Disturbances: 0-None Headache: 0-None Present CIWA-Ar Total Score: 12 [facility] Progress Note (SOAP) Subjective: sweats shakes agitation interrupted sleep Objective: 05/01/20 10:21 Vital Signs Temperature 97.8 F 05/01/20 05:51 Pulse Rate 59 L 05/01/20 05:51 Respiratory Rate 05/01/20 05:51 Blood Pressure 114/60 05/01/20 05:51 O2 Sat by Pulse Oximetry (%) 97 05/01/20 05:51 Laboratory Tests 04/30/20 04/30/20 04/30/20 13:05 13:05 13:05 WBC 7.3 RBC 4.29 Hgb 13.6 Hct 39.4 MCV 91.9 MCH 31.7 MCHC 34.5 RDW 12.7 Plt Count 265 MPV 8.0 Sodium 141 Potassium 4.5 Chloride 107 Carbon Dioxide 29 Anion Gap 5 L BUN 22.9 H Creatinine 1.2 Est GFR (CKD-EPI)AfAm 88.37 Est GFR (CKD-EPI)NonAf 76.25 Random Glucose 106 Calcium 9.2 Total Bilirubin 0.3 AST 25 ALT 30 Alkaline Phosphatase 82 Total Protein 7.4 Albumin 4.0 Syphilis Serology Non-reactive COVID-19 (JASMINA) 04/30/20 13:20 WBC RBC Hgb Hct MCV MCH MCHC RDW Plt Count MPV Sodium Potassium Chloride Carbon Dioxide Anion Gap BUN Creatinine Est GFR (CKD-EPI)AfAm Est GFR (CKD-EPI)NonAf Random Glucose Calcium Total Bilirubin AST ALT Alkaline Phosphatase Total Protein Albumin Syphilis Serology COVID-19 (JASMINA) Not detected aaox3 lying in bed no acute distress Assessment: 05/01/20 10:22 withdrawal sx Plan: continue detox increase fluids
[2020-05-01 13:19] VITALS: BP 117/55; PULSE 82
--- NOTE | 2020-05-01 14:54 | PN ---
S Progress Note Note: pt states I need to leave have to tend to personal issues. pt was made aware for risk of relapse, seizure, DT, OD and or loss, pt chose to sign out AMA.
--- NOTE | 2020-05-01 14:55 | DS ---
[facility] Detox Discharge Summary Admission Date: 04/30/20 - History Present History: Alcohol Dependence, Cannabis Dependence, Pcp Dependence - Physical Exam Results Vital Signs: Vital Signs Temperature 97.8 F 05/01/20 09:10 Pulse Rate 82 05/01/20 09:10 Respiratory Rate 17 05/01/20 09:10 Blood Pressure 117/55 L 05/01/20 09:10 O2 Sat by Pulse Oximetry (%) 98 05/01/20 09:10 Pertinent Admission Physical Exam Findings: Vital Signs Temperature 97.8 F 05/01/20 09:10 Pulse Rate 82 05/01/20 09:10 Respiratory Rate 17 05/01/20 09:10 Blood Pressure 117/55 L 05/01/20 09:10 O2 Sat by Pulse Oximetry (%) 98 05/01/20 09:10 Laboratory Tests 04/30/20 04/30/20 04/30/20 13:05 13:05 13:05 WBC 7.3 RBC 4.29 Hgb 13.6 Hct 39.4 MCV 91.9 MCH 31.7 MCHC 34.5 RDW 12.7 Plt Count 265 MPV 8.0 Sodium 141 Potassium 4.5 Chloride 107 Carbon Dioxide 29 Anion Gap 5 L BUN 22.9 H Creatinine 1.2 Est GFR (CKD-EPI)AfAm 88.37 Est GFR (CKD-EPI)NonAf 76.25 Random Glucose 106 Calcium 9.2 Total Bilirubin 0.3 AST 25 ALT 30 Alkaline Phosphatase 82 Total Protein 7.4 Albumin 4.0 Syphilis Serology Non-reactive COVID-19 (JASMINA) 04/30/20 13:20 WBC RBC Hgb Hct MCV MCH MCHC RDW Plt Count MPV Sodium Potassium Chloride Carbon Dioxide Anion Gap BUN Creatinine Est GFR (CKD-EPI)AfAm Est GFR (CKD-EPI)NonAf Random Glucose Calcium Total Bilirubin AST ALT Alkaline Phosphatase Total Protein Albumin Syphilis Serology COVID-19 (JASMINA) Not detected aaox3 ambulating pt signed out AMA - Treatment Hospital Course: Rehab Referral Accepted - Medication Discharge Medications: Ambulatory Orders NK [No Known Home Medication] 01/27/20 - Diagnosis (1) Flexor tendon laceration of hand with open wound Current Visit: No Status: Acute Qualifiers: Encounter type: initial encounter Laterality: left Qualified Code(s): S66.822A - Laceration of other specified muscles, fascia and tendons at wrist a nd hand level, left hand, initial encounter; S61.402A - Unspecified open wound of left hand, initial encounter (2) Syncope Current Visit: No Status: Acute (3) Alcohol dependence with uncomplicated withdrawal Current Visit: Yes Status: Chronic (4) Cannabis dependence Current Visit: Yes Status: Chronic (5) Insomnia Current Visit: No Status: Chronic (6) MDMA abuse Current Visit: No Status: Chronic (7) Nicotine dependence Current Visit: Yes Status: Chronic Qualifiers: Nicotine product type: cigarettes Substance use status: uncomplicated Qualified Code(s): F17.210 - Nicotine dependence, cigarettes, uncomplicated (8) Opioid use disorder Current Visit: No Status: Chronic (9) PCP (phencyclidine) abuse Current Visit: No Status: Chronic (10) Pulmonary embolism Current Visit: No Status: Suspected (11) Right leg DVT Current Visit: No Status: Suspected Qualifiers: Affected thrombotic vein of extremity: unspecified lower extremity proximal vein Chronicity: unspecified Qualified Code(s): I82.4Y1 - Acute embolism and thrombosis of unspecified deep veins of right proximal lower extremity - AMA Did Patient Leave Against Medical Advice: Yes
[2020-05-02] MEDS ORDERED: chlordiazePOXIDE HCL 25 MG CAPSULE PO SCH (05:00)
[2020-05-03] MEDS ORDERED: chlordiazePOXIDE HCL 10 MG CAPSULE PO PRN
[2020-05-03] MEDS ORDERED: chlordiazePOXIDE HCL 10 MG CAPSULE PO SCH (05:00)
[2020-05-04] MEDS ORDERED: chlordiazePOXIDE HCL 10 MG CAPSULE PO SCH (05:00)
[2020-05-05] MEDS ORDERED: chlordiazePOXIDE HCL 10 MG CAPSULE PO ONE (05:00)
== END 2020-05-01 13:00 | disposition home or self-care (01) | DRG 773 ==
LOC: YASAS 10:38 → Y6N 12:22
PROVIDERS: ADMIT Allergy & Immunology; ATTEND Allergy & Immunology
PROC: HZ2ZZZZ Detoxification Services for Substance Abuse Treatment (ICD-10-PCS; principal; 2020-04-30)
DX: F10.230 Alcohol dependence with withdrawal, uncomplicated (principal); F11.20 Opioid dependence, uncomplicated; F16.20 Hallucinogen dependence, uncomplicated; F12.20 Cannabis dependence, uncomplicated; F17.210 Nicotine dependence, cigarettes, uncomplicated; Z86.718 Personal history of other venous thrombosis and embolism; Z86.711 Personal history of pulmonary embolism
CPT/HCPCS: 36415; 80053; 85027; 86780; 93005; 93010; U0003

== ENCOUNTER 2020-11-02 22:47 | Inpatient (IN) | payer OTHER ==
[2020-11-02] MEDS ORDERED: BISMUTH SUBSALICYLATE 524 MG/30 ML UD PO PRN (23:44)
[2020-11-02] MEDS ORDERED: IBUPROFEN 400 MG TABLET (FP) PO PRN (23:44)
[2020-11-02] MEDS ORDERED: MENTHOL/PHENOL 1 EACH UD MM PRN (23:44)
[2020-11-02] MEDS ORDERED: MAG HYDROX/AL HYDROX/SIMETH 30 ML UNIT-DOSE CUP PO PRN (23:44)
[2020-11-02] MEDS ORDERED: MAGNESIUM HYDROX 2400MG/30ML ORAL SUSPENSION 30 ML CUP PO PRN (23:44)
[2020-11-02] MEDS ORDERED: METHOCARBAMOL 500 MG TABLET PO PRN (23:44)
[2020-11-02] MEDS ORDERED: hydrOXYzine PAMOATE 25 MG CAPSULE (FP) PO PRN (23:44)
[2020-11-02] MEDS ORDERED: MAGNESIUM CITRATE 300 ML BOTTLE PO PRN (23:44)
[2020-11-02] MEDS ORDERED: ONDANSETRON *ODT* 4 MG TABLET SL PRN (23:44)
[2020-11-02] MEDS ORDERED: ACETAMINOPHEN 325 MG TABLET (FP) PO PRN ×2 (23:44)
[2020-11-02] MEDS ORDERED: diazePAM 5 MG TABLET PO PRN (23:45)
[2020-11-03 00:17] VITALS: BMI 30.7
[2020-11-03] MEDS ORDERED: diazePAM 5 MG TABLET ONE ×2 (00:41→06:00)
[2020-11-03] MEDS: diazePAM 5 MG TABLET PO SCH ×3 (00:42→10:29)
[2020-11-03] MEDS: PRENATAL VITAMINS W/ FOLIC ACID TABLET (FP) PO SCH (10:28)
[2020-11-03] MEDS ORDERED: NICOTINE POLACRILEX 2 MG GUM BC PRN (10:39)
[2020-11-03 12:14] LABS: HEMATOCRIT 43.4 % (35.4-49); HEMOGLOBIN 15.3 GM/dL (11.7-16.9); MCH 32.3 pg (25.7-33.7); MCHC 35.3 g/dl (32.0-35.9); MEAN CELL VOLUME 91.7 fl (80-96); MEAN PLT VOLUME 7.8 fl (7.5-11.1); PLATELET COUNT 263 K/MM3 (134-434); RBC 4.73 M/mm3 (4.00-5.60); RDW 13.4 % (11.9-15.9); WHITE BLOOD COUNT 8.2 K/mm3 (4.0-10.0)
[2020-11-03 12:18] LABS: POTASSIUM 4.7 mmol/L (3.5-5.1)
[2020-11-03] MEDS: NICOTINE 21 MG/24 HOURS TOPICAL PATCH TD SCH (12:22)
[2020-11-03 12:27] LABS: BLOOD UREA NITROGEN 17.2 mg/dL (7-18)
[2020-11-03 12:28] LABS: BILIRUBIN,TOTAL 0.8 mg/dL (0.2-1); TOT PROT 7.3 g/dl (6.4-8.2)
[2020-11-03 12:30] LABS: CALCIUM 9.6 mg/dL (8.5-10.1)
[2020-11-03] MEDS: chlordiazePOXIDE HCL 25 MG CAPSULE PO PRN (12:38)
[2020-11-03 13:12] LABS: HIV INTERPRETATION NEGATIVE (NEGATIVE)
[2020-11-03] MEDS: chlordiazePOXIDE HCL 25 MG CAPSULE PO SCH ×2 (17:28→23:05)
[2020-11-03] MEDS: THIAMINE HCL 100 MG TABLET (FP) PO SCH (23:02)
[2020-11-03] MEDS: BACITRACIN 0.9 GM PACKET TP SCH (23:02)
[2020-11-03] MEDS: MELATONIN 5 MG TABLETS PO SCH (23:03)
[2020-11-04] MEDS ORDERED: diazePAM 5 MG TABLET PO SCH (06:00)
[2020-11-04] MEDS: chlordiazePOXIDE HCL 25 MG CAPSULE PO SCH ×4 (06:14→22:25)
[2020-11-04] MEDS: NICOTINE 21 MG/24 HOURS TOPICAL PATCH TD SCH (10:09)
[2020-11-04] MEDS: BACITRACIN 0.9 GM PACKET TP SCH ×2 (10:10→22:25)
[2020-11-04] MEDS: PRENATAL VITAMINS W/ FOLIC ACID TABLET (FP) PO SCH (10:11)
[2020-11-04] MEDS: chlordiazePOXIDE HCL 25 MG CAPSULE PO PRN (14:59)
[2020-11-04] MEDS: THIAMINE HCL 100 MG TABLET (FP) PO SCH (22:25)
[2020-11-04] MEDS: MELATONIN 5 MG TABLETS PO SCH (22:25)
[2020-11-05] MEDS: chlordiazePOXIDE HCL 25 MG CAPSULE PO PRN (03:30)
[2020-11-05] MEDS ORDERED: chlordiazePOXIDE HCL 25 MG CAPSULE PO SCH (05:00)
[2020-11-05] MEDS ORDERED: diazePAM 5 MG TABLET PO SCH (06:00)
[2020-11-05 09:31] VITALS: BP 104/65; PULSE 70; TEMP 97.3
[2020-11-06] MEDS ORDERED: chlordiazePOXIDE HCL 10 MG CAPSULE PO PRN
[2020-11-06] MEDS ORDERED: chlordiazePOXIDE HCL 10 MG CAPSULE PO SCH (05:00)
[2020-11-06] MEDS ORDERED: diazePAM 5 MG TABLET PO ONE (06:00)
[2020-11-07] MEDS ORDERED: chlordiazePOXIDE HCL 10 MG CAPSULE PO SCH (05:00)
[2020-11-08] MEDS ORDERED: chlordiazePOXIDE HCL 10 MG CAPSULE PO ONE (05:00)
== END 2020-11-05 10:00 | disposition left against medical advice (07) | DRG 770 ==
LOC: YASAS 22:47 → Y3N 11-03 09:24
PROVIDERS: ADMIT Allergy & Immunology; ATTEND Allergy & Immunology
PROC: HZ2ZZZZ Detoxification Services for Substance Abuse Treatment (ICD-10-PCS; principal; 2020-11-03)
DX: F10.230 Alcohol dependence with withdrawal, uncomplicated (principal); F16.20 Hallucinogen dependence, uncomplicated; F12.20 Cannabis dependence, uncomplicated; F17.210 Nicotine dependence, cigarettes, uncomplicated; Z86.711 Personal history of pulmonary embolism
CPT/HCPCS: 36415; 80053; 85027; 86780; 87389; C9803; U0003

== ENCOUNTER 2021-09-26 15:35 | Emergency (ER) | payer OTHER ==
[2021-09-26 15:53] VITALS: TEMP 97; BMI 32.1
[2021-09-26 17:01] LABS: EPI CELLS 1 /uL (0-25.1); HYALINE CASTS 0 /uL (0-3.1); URINE APPEARANCE CLEAR; URINE BACTERIA 4 /uL (0-1359); URINE BILIRUBIN NEGATIVE (NEGATIVE); URINE COLOR YELLOW; URINE GLUCOSE (UA) NEGATIVE (NEGATIVE); URINE KETONE TRACE (NEGATIVE); URINE LEUK ESTERASE NEGATIVE (NEGATIVE); URINE NITRITE NEGATIVE (NEGATIVE); URINE PROTEIN NEGATIVE (NEGATIVE); URINE RBC 5 /uL (0-23.9); URINE UROBILINOGEN 0.2 mg/dL (0.2-1.0); URINE WBC 1 /uL (0-25.8)
[2021-09-26] MEDS ORDERED: ACETAMINOPHEN 500 MG TABLET (FP) PO ONE (17:12)
[2021-09-26 17:16] LABS: BASO % 1.5 % (0-2.0); EOS % 1.8 % (0-4.5); HEMATOCRIT 44.4 % (35.4-49); HEMOGLOBIN 15.2 GM/dL (11.7-16.9); LYMPH % 39.9 % (8-40); MCH 31.7 pg (25.7-33.7); MCHC 34.1 g/dl (32.0-35.9); MEAN CELL VOLUME 92.8 fl (80-96); MEAN PLT VOLUME 7.5 fl (7.5-11.1); MONO % 10.6 % (3.8-10.2); NEUT % 46.2 % (42.8-82.8); PLATELET COUNT 249 10^3/uL (134-434); RBC 4.79 M/mm3 (4.00-5.60); RDW 13.5 % (11.9-15.9); WHITE BLOOD COUNT 5.3 K/mm3 (4.0-10.0)
[2021-09-26 17:23] LABS: INR 1.05 (0.83-1.09); PROTHROMBIN TIME (PATIENT) 12.1 SEC (9.7-13.0)
[2021-09-26 17:26] LABS: ACTIVATED PTT 26.6 SECONDS (25.2-36.5)
[2021-09-26 17:34] LABS: BLOOD UREA NITROGEN 18.8 mg/dL (7-18); CALCIUM 9.3 mg/dL (8.5-10.1)
[2021-09-26 17:35] LABS: ALBUMIN 4.2 g/dl (3.4-5.0); MAGNESIUM 2.3 mg/dL (1.8-2.4)
[2021-09-26 17:39] LABS: BILIRUBIN,TOTAL 0.4 mg/dL (0.2-1); TOT PROT 7.4 g/dl (6.4-8.2)
[2021-09-26] MEDS ORDERED: ACETAMINOPHEN 325 MG TABLET (FP) ONE (17:46)
[2021-09-26] MEDS ORDERED: KETOROLAC TROMETHAMINE 30 MG/1 ML VIAL IM ONE (19:54)
[2021-09-26] MEDS ORDERED: KETOROLAC TROMETHAMINE 15 MG/ML VIAL IVPUSH ONE (19:58)
[2021-09-26] MEDS ORDERED: KETOROLAC TROMETHAMINE 15 MG/ML VIAL ONE (19:58)
[2021-09-26 21:52] VITALS: BP 148/80; PULSE 80
== END 2021-09-26 21:53 | disposition home or self-care (01) ==
LOC: JER 15:35
PROC: 3E033GC Introduction of Other Therapeutic Substance into Peripheral Vein, Percutaneous Approach (ICD-10-PCS; principal; 2021-09-26)
DX: R10.30 Lower abdominal pain, unspecified (principal)
CPT/HCPCS: 36415; 74176-TC; 80053; 81003; 82272; 83735; 85025; 85610; 85730; 86850; 86900; 86901; 87086; 96374; 99285-25

== ENCOUNTER 2022-02-23 12:28 | Inpatient (IN) | payer OTHER ==
[2022-02-23 13:18] VITALS: BMI 32.1
[2022-02-23] MEDS ORDERED: BENZOCAINE/MENTHOL (CHLORASEPTIC ) LOZENGE MM PRN (14:58)
[2022-02-23] MEDS ORDERED: ONDANSETRON *ODT* 4 MG TABLET SL PRN (14:58)
[2022-02-23] MEDS ORDERED: MAGNESIUM HYDROX 2400MG/30ML ORAL SUSPENSION 30 ML CUP PO PRN (14:58)
[2022-02-23] MEDS ORDERED: IBUPROFEN 400 MG TABLET (FP) PO PRN (14:58)
[2022-02-23] MEDS ORDERED: MAG HYDROX/AL HYDROX/SIMETH 30 ML UNIT-DOSE CUP PO PRN (14:58)
[2022-02-23] MEDS ORDERED: IBUPROFEN 600 MG TABLET (FP) PO PRN (14:58)
[2022-02-23] MEDS ORDERED: METHOCARBAMOL 500 MG TABLET PO PRN (14:58)
[2022-02-23] MEDS ORDERED: ACETAMINOPHEN 325 MG TABLET (FP) PO PRN ×2 (14:58)
[2022-02-23] MEDS ORDERED: NICOTINE 10 MG CARTRIDGE (INHALER) IH PRN (14:58)
[2022-02-23] MEDS ORDERED: BISMUTH SUBSALICYLATE 262 MG/15 ML BTL PO PRN (14:58)
[2022-02-23] MEDS ORDERED: MAGNESIUM CITRATE 300 ML BOTTLE PO PRN (14:58)
[2022-02-23] MEDS ORDERED: LOPERAMIDE HCL 2 MG CAPSULE PO PRN (14:58)
[2022-02-23] MEDS ORDERED: DICYCLOMINE HCL 10 MG CAPSULE PO PRN (14:58)
[2022-02-23] MEDS ORDERED: MELATONIN 5 MG TABLETS PO SCH (22:00)
[2022-02-23] MEDS ORDERED: THIAMINE HCL 100 MG TABLET (FP) PO SCH (22:00)
[2022-02-24] MEDS: hydrOXYzine PAMOATE 25 MG CAPSULE (FP) PO SCH ×4 (00:08→10:39)
[2022-02-24] MEDS: BACITRACIN 0.9 GM PACKET TP SCH ×2 (00:08→10:39)
[2022-02-24 09:16] VITALS: BP 140/84; PULSE 78; TEMP 97.3
[2022-02-24] MEDS ORDERED: PRENATAL VITAMINS W/ FOLIC ACID TABLET (FP) PO SCH (10:00)
[2022-02-24 12:13] LABS: HEMATOCRIT 40.8 % (35.4-49); HEMOGLOBIN 14.1 GM/dL (11.7-16.9); MCH 32.5 pg (25.7-33.7); MCHC 34.6 g/dl (32.0-35.9); PLATELET COUNT 246 10^3/uL (134-434); RBC 4.34 M/mm3 (4.00-5.60); RDW 13.7 % (11.9-15.9)
[2022-02-24 12:42] LABS: ALBUMIN 3.9 g/dl (3.4-5.0); BLOOD UREA NITROGEN 15.6 mg/dL (7-18); CALCIUM 9.2 mg/dL (8.5-10.1)
[2022-02-24 12:47] LABS: BILIRUBIN,TOTAL 0.6 mg/dL (0.2-1); TOT PROT 7.2 g/dl (6.4-8.2)
== END 2022-02-24 12:00 | disposition home or self-care (01) | DRG 773 ==
LOC: YASAS 12:28 → Y6N 14:49
PROVIDERS: ADMIT Allergy & Immunology; ATTEND Surgery
PROC: HZ2ZZZZ Detoxification Services for Substance Abuse Treatment (ICD-10-PCS; principal; 2022-02-23)
DX: F11.23 Opioid dependence with withdrawal (principal); F12.20 Cannabis dependence, uncomplicated; F16.10 Hallucinogen abuse, uncomplicated; F17.210 Nicotine dependence, cigarettes, uncomplicated; Z86.718 Personal history of other venous thrombosis and embolism; Z28.310 Unvaccinated for COVID-19
CPT/HCPCS: 36415; 80053; 85027; 86780; 87811; C9803-CS; U0003; U0005